=== PATIENT | male | born 1995 | race Asian ===

== ENCOUNTER 2024-11-19 11:41 | Outpatient (CLI) | payer MEDICAID ==
--- NOTE | 2024-11-19 12:39 | RADIOLOGY REPORT ---
EXAM: MR MRI LOWER EXTREMITY LEFT INDICATION: Knee pain TECHNIQUE: Multiplanar and multisequence MR imaging of the left ankle was performed in the absence of gadolinium contrast. COMPARISON: None FINDINGS: [ there is a horizontal tear in the posterior horn of the medial meniscus extending into the posterio r root. This is best seen on coronal images 12 and 13 The lateral meniscus is intact The cruciate ligaments are intact The collateral ligaments are intact The quadriceps and patellar tendons are intact The hyaline cartilage surfaces covering the patellofemoral joint are normal in appearance. IMPRESSION: 1. Horizontal tear in the posterior horn of the medial meniscus extending into the posterior root of the meniscus
== END 2024-11-19 23:59 | disposition home or self-care (01) ==
LOC: MRI02 11:41
PROVIDERS: ATTEND Family Medicine Sports Medicine
DX: S83.242A Other tear of medial meniscus, current injury, left knee, initial encounter (principal); M25.562 Pain in left knee; M22.42 Chondromalacia patellae, left knee; S83.207A Unspecified tear of unspecified meniscus, current injury, left knee, initial encounter; X58.XXXA Exposure to other specified factors, initial encounter; Y93.89 Activity, other specified; Y92.89 Other specified places as the place of occurrence of the external cause; Y99.8 Other external cause status
CPT/HCPCS: 73721